=== PATIENT | female | born 1990 | race Hispanic/Latino ===

== ENCOUNTER 2019-08-28 03:21 | Emergency (ER) | payer SELFPAY ==
--- NOTE | 2019-08-28 04:59 | Emergency Department Report ---
- General Chief complaint: Skin/Abscess/Foreign Body Stated complaint: INFECTION LT SIDE OF NECK Time Seen by Provider: 08/28/19 04:43 Source: patient Mode of arrival: Ambulatory Limitations: No Limitations - History of Present Illness Initial comments: 29-year-old female presents to the emergency room for swollen and painful bump to her left neck 2 days. Patient states that it started as a pimple that has continued to take it until it's gotten red and swollen and painful. Patient denies any fever chills no nausea no vomiting. Patient reports that she took Advil about 12 PM. Patient denies any past medical history currently takes no medications on a daily basis and has no known drug allergies. MD complaint: abscess/boil Onset/Timin -: days(s) Tetanus Up to Date: unsure Location: neck Severity scale (0 -10): 8 Quality: aching Consistency: constant Worsens with: palpation Associated symptoms: denies other symptoms Treatments Prior to Arrival: NSAID - Related Data Previous Rx's Medication Instructions Recorded Last Taken Type Ibuprofen [Motrin 800 MG tab] 800 mg PO Q8HR PRN #15 tablet 08/28/19 Unknown Rx cephALEXin [Keflex] 500 mg PO Q12HR #20 cap 08/28/19 Unknown Rx Allergies Allergy/AdvReac Type Severity Reaction Status Date / Time No Known Allergies Allergy Unverified 08/28/19 04:58 Abscess Boil HPI - HPI Chief Complaint: Skin/Abscess/Foreign Body Stated Complaint: INFECTION LT SIDE OF NECK Time Seen by Provider: 08/28/19 04:43 Home Medications: Previous Rx's Medication Instructions Recorded Last Taken Type Ibuprofen [Motrin 800 MG tab] 800 mg PO Q8HR PRN #15 tablet 08/28/19 Unknown Rx cephALEXin [Keflex] 500 mg PO Q12HR #20 cap 08/28/19 Unknown Rx Allergies/Adverse Reactions: Allergies Allergy/AdvReac Type Severity Reaction Status Date / Time No Known Allergies Allergy Unverified 08/28/19 04:58 ED Review of Systems ROS: Stated complaint: INFECTION LT SIDE OF NECK Other details as noted in HPI Comment: All other systems reviewed and negative ED Past Medical Hx - Past Medical History Previous Medical History?: No - Surgical History Past Surgical History?: No - Social History Smoking Status: Never Smoker Substance Use Type: None - Medications Home Medications: Home Medications Medication Instructions Recorded Confirmed Last Taken Type Ibuprofen [Motrin 800 MG tab] 800 mg PO Q8HR PRN #15 tablet 08/28/19 Unknown Rx cephALEXin [Keflex] 500 mg PO Q12HR #20 cap 08/28/19 Unknown Rx ED Physical Exam - General Limitations: No Limitations General appearance: alert, in no apparent distress - Head Head exam: Present: atraumatic, normocephalic - Eye Eye exam: Present: normal appearance - ENT ENT exam: Present: mucous membranes moist - Neck Neck exam: Present: tenderness (left lateral neck), full ROM, other (erythematous nonerythematous bump no drainage appreciated not indurated no fluctuation) - Neurological Exam Neurological exam: Present: normal gait - Psychiatric Psychiatric exam: Present: normal affect, normal mood - Skin Skin exam: Present: warm, dry, intact, normal color. Absent: rash ED Course Vital Signs 08/28/19 03:24 Temperature 98.6 F Pulse Rate 121 H Respiratory 18 Rate Blood Pressure 153/102 O2 Sat by Pulse 96 Oximetry ED Medical Decision Making - Medical Decision Making 29-year-old female presents to the emergency room for swollen and painful bump to her left neck 2 days. Patient states that it started as a pimple that has continued to take it until it's gotten red and swollen and painful. Patient denies any fever chills no nausea no vomiting. Patient reports that she took Advil about 12 PM. Patient denies any past medical history currently takes no medications on a daily basis and has no known drug allergies. Cellulitis of left lateral neck area patient be placed on Keflex 500 mg by mouth twice a day for 10 days. Patient continue with ibuprofen 800 mg daily. Repeat pulse ox and heart rate 91 heart rate 97% on room air Critical care attestation.: If time is entered above; I have spent that time in minutes in the direct care of this critically ill patient, excluding procedure time. ED Disposition Clinical Impression: Cellulitis of neck Disposition: - TO HOME OR SELFCARE Is pt being admited?: No Does the pt Need Aspirin: No Condition: Stable Instructions: Cellulitis (ED) Prescriptions: cephALEXin [Keflex] 500 mg PO Q12HR #20 cap Ibuprofen [Motrin 800 MG tab] 800 mg PO Q8HR PRN #15 tablet PRN Reason: Pain , Severe (7-10) Referrals: [facility] [Provider Group] - 3-5 Days
[2019-08-28 05:32] VITALS: BP 143/86
== END 2019-08-28 05:43 | disposition home or self-care (01) ==
LOC: ED 03:21
DX: L03.221 Cellulitis of neck (principal)
CPT/HCPCS: 99282